=== PATIENT | male | born 2000 | race Caucasian/White ===

== ENCOUNTER 2021-12-28 13:37 | Emergency (ER) | payer OTHER, SELFPAY ==
[2021-12-28 14:02] VITALS: BP 128/75; PULSE 90; RESP 18; TEMP 36.6; O2SAT 97
--- NOTE | 2021-12-28 14:26 | ED.SKABFB ---
HPI - Skin/Abscess/Foreign Bdy General Chief complaint: Skin/Abscess/Foreign Body Stated complaint: rash on rt ankle Time Seen by Provider: 12/28/21 13:52 Source: patient Mode of arrival: ambulatory Limitations: no limitations History of Present Illness HPI narrative: 21-year-old male presents to urgent care with complaints of erythematous slightly itchy rash to his right lower leg near his right ankle and right lower leg, near his right knee for the past 12 days. Patient has been applying owuv-fui-vzpoegv triple antibiotic ointment with little relief. Patient denies new medications, new soaps or new detergents. Patient denies shortness of breath, wheezing, trouble swallowing or difficulty breathing. 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 Patient denies pain to area of rash. MD complaint: rash Onset (ago): day(s) (10) Location: [facility] Relieving factors: none Exacerbating factors: none Context: none Associated symptoms: itching Treatments prior to arrival: none Related Data Allergies Allergy/AdvReac Type Severity Reaction Status Date / Time No Known Allergies Allergy Verified 12/28/21 14:13 Review of Systems Constitutional: Constitutional: Denies chills, Denies fatigue, Denies fever(s) and Denies weakness ENT: Denies dizziness Cardiovascular: Cardiovascular: Denies chest pain, Denies rapid heart rate, Denies radiating jaw, neck or arm pain and Denies slow heart rate Respiratory: Respiratory: Denies chest congestion, Denies cough, Denies dyspnea and Denies wheezing Gastrointestinal: Gastrointestinal: Denies abdominal pain, Denies diarrhea, Denies nausea and Denies vomiting Integumentary/Breasts: Skin/Breast: Reports pruritus and Reports rash Neurologic: Denies dizziness PMFSH Social History Social History (Updated 12/28/21 @ 14:30 by Sofia Alexander, ALCIDES) Tobacco type: e-cigarettes/vaping Comments At time of signature, I agree with nursing past medical, surgical, social and family history. There is no relevant family history pertinent to the presenting complaint. Exam Const: General: healthy appearing Nutritional Appearance: well nourished Orientation/consciousness: patient oriented x3 Limitations: no limitations Neck: Neck: normal visual inspection Resp: Effort & Inspection: normal respiratory effort Auscultation: clear to auscultation bilaterally Cardio: Rate: regular rate Rhythm: regular rhythm Heart sounds: no murmurs Skin: General skin exam: normal color Wounds: no wounds Other: 6 cm area of raised erythematous rash noted to distal aspect of right lower leg and 3 cm area of raised erythematous rash noted to lower leg, below right knee; area likely represents irritant dermatitis. There is no purulent drainage, bruising, bleeding or signs of infection noted Neuro: General: patient oriented x3 Cranial nerves: Yes Nystagmus not present Speech: normal speech Gait exam (Neuro): Normal gait present Psych: Affect: normal affect Attitude: cooperative Course Course Level of Care: Express Care Visit Vital Signs Vital signs: Vital Signs Temperature 36.6 C 12/28/21 14:02 Pulse Rate 90 12/28/21 14:02 Respiratory Rate 18 12/28/21 14:02 Blood Pressure 128/75 12/28/21 14:02 Pulse Oximetry 97 12/28/21 14:02 Oxygen Delivery Room Air 12/28/21 14:02 Temperature 36.6 C 12/28/21 14:02 Pulse Rate 90 12/28/21 14:02 Respiratory Rate 18 12/28/21 14:02 Blood Pressure 128/75 12/28/21 14:02 Pulse Oximetry 97 12/28/21 14:02 Oxygen Delivery Room Air 12/28/21 14:02 MDM - Skin/Abscess/Foreign Bdy MDM Narrative Medical decision making narrative: Patient agrees to take medications as prescribed. Patient agrees to take [id number] Benadryl as needed for itching. Patient agrees to follow-up with dermatology or primary care provider if symptoms not improve Differential Diagnosis Differential diagnosis: Likely abscess of s
== END 2021-12-28 14:39 | disposition home or self-care (01) ==
PROVIDERS: Emergency Provider Nurse Practitioner Family
DX: L30.9 Dermatitis, unspecified (principal); F17.290 Nicotine dependence, other tobacco product, uncomplicated
CPT/HCPCS: 99213; G0463

== ENCOUNTER 2024-08-13 10:36 | Emergency (ER) | payer OTHER, SELFPAY ==
[2024-08-13 10:47] VITALS: BP 118/68; PULSE 88; RESP 16; TEMP 36.8; O2SAT 99
--- NOTE | 2024-08-13 11:15 | ED.GENADULT ---
HPI - General Adult General Chief complaint: Upper Respiratory Infection Stated complaint: nasal pressure Source: patient Mode of arrival: ambulatory Limitations: no limitations History of Present Illness HPI narrative: Patient presents for evaluation of sinus symptoms. He indicates that last week he was include the ill with multiple symptoms including sinus congestion, cough, generalized body aches, diarrhea and fatigue Most of those symptoms resolved. He had recurrence of sinus congestion as of Friday of this week. He also has thick yellow-green drainage from the nares. He has been taking mucinex for his symptoms. He does not smoke. Related Data Allergies Allergy/AdvReac Type Severity Reaction Status Date / Time amoxicillin Allergy Mild Itching Verified 08/13/24 10:47 Review of Systems Review of Systems: CONSTITUTIONAL: Denies fever, chills, or sweats. EYES: Denies visual changes, redness, or discharge. ENT: Reports sinus congestion and thick yellow/green drainage from the nares CARDIOVASCULAR: Denies chest pain, palpitations, or edema. RESPIRATORY: reports cough. Denies shortness of breath. GASTROINTESTINAL: Denies abdominal pain, nausea, vomiting, or diarrhea. GENITOURINARY: Denies dysuria or hematuria. SKIN: Denies rash or itching. MUSCULOSKELETAL: Denies back pain, joint pain, or myalgia. NEUROLOGIC: Denies headache, numbness, dizziness, or weakness. PSYCHIATRIC: Denies anxiety or depression. [facility] Past Medical History Medical History No pertinent past medical history Surgical History Surgical History (Updated 08/13/24 @ 11:21 by [place], [facility], ) No pertinent past surgical history Family History Family History Mother Family history non-contributory Social History Social History Substance use: never Living arrangements: alone Gender identity (if verbalized by the patient): Male Spiritual care concerns: No Exam Narrative: GENERAL: Well-appearing, well-nourished, and in no acute distress. HEAD: Normocephalic, atraumatic. EYES: PERRLA and EOMI. ENT: Nares clear, no rhinorrhea or epistaxis. Mucous membranes moist. Oropharynx without tonsillar hypertrophy exudate or other lesions. Bilateral TMs pearly mayo nonbulging NECK: Supple. No adenopathy or masses. No carotid bruits or JVD CHEST: Clear to auscultation. No respiratory distress. No wheezes rales or rhonchi HEART: Regular rate and rhythm. No murmur heard. Normal peripheral pulses. ABDOMEN: Soft, nontender, nondistended, normal active bowel sounds. EXTREMITIES: Normal range of motion. No edema. SKIN: Warm, dry, no rash. NEURO: No focal deficits. Alert and oriented x3. PSYCH: Normal mood and affect. Course Course Emergency Course: this is a 23-year-old male who presented for evaluation of sick symptoms. He meets criteria for bacterial sinusitis based upon duration of time in which she has been symptomatic in mucopurulent nature of his discharge. Will treat with doxycycline. increase hydration. Zoob-eug-ijruaxn agents for symptom management. Follow up with primary provider. Go to the ER for worsening symptoms. Patient in agreement with plan of care. Level of Care: Express Care Visit Vital Signs Vital signs: Vital Signs Temperature 36.8 C 08/13/24 10:47 Pulse Rate 88 08/13/24 10:47 Respiratory Rate 16 08/13/24 10:47 Blood Pressure 118/68 08/13/24 10:47 Pulse Oximetry 99 08/13/24 10:47 Oxygen Delivery Room Air 08/13/24 10:47 Temperature 36.8 C 08/13/24 10:47 Pulse Rate 88 08/13/24 10:47 Respiratory Rate 16 08/13/24 10:47 Blood Pressure 118/68 08/13/24 10:47 Pulse Oximetry 99 08/13/24 10:47 Oxygen Delivery Room Air 08/13/24 10:47 Medical Decision Making Vital Signs Vital Signs: Vital Signs Temperature 36.8 C 08/13/24 10:47 Pulse Rate 88 08/13/24 10:47 Respiratory Rate 16 08/13/24 10:47 Blood Pressure 118/68 08/13/24 10:47 Pulse Oximetry 99 08/13/24 10:47 Oxygen Delivery Room Air 08/13/24 10:47 Temperature 36.8 C 08/13/24 10:47 Pulse Rate 88 08/13/24 10:47 Respiratory Rate 16 08/13/24 10:47 Blood Pressure 118/68 08/13/24 10:47 Pulse Oximetry 99 08/13/24 10:47 Oxygen Delivery Room Air 08/13/24 10:47 Discharge Plan Discharge Clinical Impression: Acute bacterial sinusitis Patient Disposition: Home, Self-Care Condition: Stable Instructions: Antibiotic Form, Sinusitis (ED) Patient Language: Georgian Prescriptions: New doxycycline hyclate 100 mg capsule 100 mg PO BID Qty: 20 0RF Follow-up/Referrals: Kathleen Muñoz [Other] Time of Disposition: 11:07
--- OUTSIDE RECORDS SUMMARY | 2024-08-13 11:19 | XMS_ITS | Clinical Summary ---
Author Organization [facility] Address [address] [place] [address] Care Team Providers Care Stylist Assistant Name Role Phone Kathleen Muñoz MD Primary Care Provider [phone] Allergies Active Allergy Reactions Criticality Noted Date Comments Amoxicillin-Pot Clavulanate Hives 06/12/20 Medications Creatine Powder 0.5 Scoops by Does not apply route every 3 (three) days. Active Active Problems Problem Noted Date Diagnosed Date BMI 26.0-26.9,adult 07/29/2023 Family history of ischemic heart disease (IHD) 0 07/29/2023 Arachnoid cyst 01/19/2019 Overview (07/29/2023): Incidental finding. Evaluated by pediatric neurosurgery [facility]. No surgery; appeared stable. Resolved Problems Problem Noted Date Diagnosed Date Resolved Date Hamstring strain 12/30/2017 07/29/2023 Abnormal electrocardiography 02/05/2017 07/29/2023 Well child visit 01/21/2017 03/17/2020 Hypercalciuria 03/08/2010 07/29/2023 Gross hematuria 08/23/2009 07/29/2023 Encounters Date Type Department Care Team Description 07/01/2024 8:20 AM DURALUMIN MECHANIC Office Visit [facility] Medical [facility] Family Medicine [address] [address] Kathleen Muñoz MD Follow Up (Patient presents today for a routine follow up as a transfer patient. ) 07/01/2024 Travel from Last 3 Months Immunizations Name Administration Dates Next Due DTaP-IPV/Hib (Pentacel) 01/24/2001 Dtap (Generic) 01/24/2005 Dtap/Hep B/Ipv 2000 Dtap/Hib 03/12/2002,03/21/2001 HPV 01/22/2017,04/27/2016,03/13/2012 Hepatitis A (Generic) 01/22/2017,03/13/2012 Hepatitis B (Generic: Adult) 10/20/2001,03/21/20 01 Influenza (Generic) 04/27/2016 MMR (Generic) 01/24/2005,03/12/2002 Meningococcal Vac A,C,Y,W-135 Sc 04/20/2018,01/2012 Pneumococcal (Pneumovax 23) 03/12/2002, 1,01/24/2001 Pneumococcal (Prevnar 7) 2000 Polio Ipv (Generic) 01/24/2005,10/20/2001 Tdap (Generic) 03/13/2012 Varicella Vaccine 05/29/2007,10/20/2001 Family History Medical History Relation Comments Lung Cancer Maternal Grandfather tobacco use Maternal Grandfather Cancer Paternal Grandfather lump neck Diabetes Paternal Grandfather Heart Attack Paternal Grandfather Heart Attack Paternal great-grandfather Eczema Sister Relation Status Comments Maternal Grandfather Paternal Grandfather Paternal great-grandfather Sister Social History Tobacco Use Types Packs/Day Years Used Date Smoking Tobacco: Never Passive Smoke Exposure: Never Smokeless Tobacco: Never Tobacco Cessation:Counseling Given: No Alcohol Use Standard Drinks/Week Comments Yes 15 (1 standard drink = 0.6 oz pu re alcohol) social 5-6 beer/month AUDIT-C Answer Date Recorded Frequency of Alcohol Consumption Never 01/15/2019 Average Number of Drinks Not on file 019 Frequency of Binge Drinking Not on file 01/04 PHQ-2 Answer Date Recorded Patient Health Questionnaire-2 Score 0 07/01/2024 Sex and Gender Information Value Date Recorded Sex Assigned at Not on file Legal Sex Male 9:21 PM CDT Gender Identity Not on file Sexual Orientation Not on file Last Filed Vital Signs Vital Sign Reading Time Taken Comments Blood Pressure 119/66 07/01/2024 8:25 AM DURALUMIN MECHANIC Pulse 94 07/01/2024 8:25 AM DURALUMIN MECHANIC Temperature 36.7 C (98 F) 07/01/2024 8:25 AM DURALUMIN MECHANIC Respiratory Rate 16 07/25/2023 11:2 9 AM DURALUMIN MECHANIC Oxygen Saturation 97% 07/01/2024 8:25 AM DURALUMIN MECHANIC Inhaled Oxygen Concentration - - Weight 90.6 kg (199 lb 12.8 oz) 07/01/2024 8:25 AM DURALUMIN MECHANIC Height 188 cm (6' 2 ) 07/25/2023 11:29 AM DURALUMIN MECHANIC Body Mass Index 25.65 07/25/2023 11:29 AM DURALUMIN MECHANIC Plan of Treatment Upcoming Encounters Date Type Department Care Team (Late st Contact Info) Description 12/30/2024 8:20 AM CDT Office Visit [facility] Family Medicine [facility] [address] [place] [address] Kathleen Muñoz MD [address] [place] [address] Health Maintenance Due Date Last Done Comments Meningococcal B Vaccine (1 of 2 - Standard) 2016 Hepatitis C 2018 DTaP, Tdap and Td Vaccines (7 - Td or Tdap) 03/13/2022 03/13/2012, 01/24/2005, 03/12/2002, Additional history exists PHQ-2 (Physician Telida) 07/07/2024 07/01/2024 Annual Physical 07/01/2025 07/01/2024 COVID-19 Vaccine ( - season) 2025 Postponed from 03/07/2024 (Patient Refused) Influenza Adult (#1) 2025 04/27/2016 Postpon ed from 04/06/2024 (Patient Refused) PHQ-2 (Physician Telida) 07/01/2025 07/01/2024 Hepatitis B Vaccines Completed 10/20/2001, 03/21/2001, 2000 Pneumococcal Vaccine: Pediatrics (0 to 5 Years) and At-Risk Patients (6 to 64 Years) Aged Out 03/12/2002, 03/21/2001, 01/24/2001, Additional history exists No longer eligible based on patient's age to complete this topic HPV Vaccines Completed 01/22/2017, 04/07, 03/13/2012 Meningococcal Vaccine Aged Out 04/20/2018, 09/07/2 012 No longer eligible based on patient's age to complete this topic RSV Immunizations Under 20 Months Aged Out No longer eligible based on patient's age to complete this topic Additional Health Concerns Infection Onset Date Last Indicated MRSA 07/27/2018 07/27/2018 Insurance R Care Teams Stylist Assistant Relationship Specialty Start Date End Date Kathleen Muñoz MD [address] [place] [address] PCP - General FAMILY PRACTICE 07/01/24
== END 2024-08-13 11:11 | disposition home or self-care (01) ==
PROVIDERS: Emergency Provider Nurse Practitioner
DX: J01.90 Acute sinusitis, unspecified (principal)
CPT/HCPCS: 99213; G0463